=== PATIENT | male | born 1975 ===

== ENCOUNTER 2017-04-06 18:59 | Observation (INO) | payer OTHER ==
[2017-04-06 18:59] VITALS: BMI 31.3
[2017-04-06] MEDS ORDERED: Sodium Chloride 0.9% 1,000 ML IV STA ×2 (19:25→20:22)
--- NOTE | 2017-04-06 19:34 | ED PDOC ---
HPI: Chest Pain Time Seen by Provider: 04/06/17 19:16 Chief Complaint (Nursing): Chest Pain Chief Complaint (Provider): chest pain History Per: Patient History/Exam Limitations: no limitations Onset/Duration Of Symptoms: Days (x 2) Current Symptoms Are (Timing): Still Present Additional Complaint(s): Som Rojo is a 42 year old male, with a previous medical history of alcohol abuse, cirrhosis, arrhythmia and A-fib, who presents to the ED with complaints of chest pain associated with chest palpitations, vomiting, coughing and shortness of breath ongoing for 2 days. Patient reports approximately 8 episodes of non-bloody non-bilious vomiting. Patient reports sleeping during symptom onset. PMD: Clinic in [place] Past Medical History Reviewed: Historical Data, Nursing Documentation, Vital Signs Vital Signs: Last Vital Signs Temp 99.8 F H 04/06/17 19:24 Pulse 153 H 04/06/17 19:24 Resp 20 04/06/17 19:24 BP 138/81 04/06/17 19:24 Pulse Ox 97 04/06/17 19:56 - Medical History PMH: Atrial Fibrillation Denies: Chronic Kidney Disease Other PMH: cirrhosis and arrhythmia - Surgical History Surgical History: Appendectomy - Family History Family History: States: Unknown Family Hx - Home Medications Home Medications: Ambulatory Orders Medication Instructions Recorded No Known Home Med 03/26/16 - Allergies Allergies/Adverse Reactions: Allergies Allergy/AdvReac Type Severity Reaction Status Date / Time No Known Allergies Allergy Verified 04/06/17 19:08 Review of Systems ROS Statement: Except As Marked, All Systems Reviewed And Found Negative Constitutional: Negative for: Fever Cardiovascular: Positive for: Chest Pain, Palpitations Gastrointestinal: Positive for: Vomiting. Negative for: Abdominal Pain Physical Exam - Reviewed Nursing Documentation Reviewed: Yes Vital Signs Reviewed: Yes - Physical Exam Appears: Positive for: Well, Non-toxic, No Acute Distress Head Exam: Positive for: ATRAUMATIC, NORMAL INSPECTION, NORMOCEPHALIC Skin: Positive for: Normal Color, Warm, DRY Eye Exam: Positive for: Scleral icterus ENT: Positive for: Normal ENT Inspection Neck: Positive for: Normal, Painless ROM Cardiovascular/Chest: Positive for: Tachycardia, Irregularly Irregular Respiratory: Positive for: Normal Breath Sounds Gastrointestinal/Abdominal: Positive for: Bowel Sounds, Soft, Other ( protuberant ). Negative for: Tenderness Back: Positive for: Normal Inspection Extremity: Positive for: Normal ROM. Negative for: Tenderness, Pedal Edema, Calf Tenderness Neurologic/Psych: Positive for: Alert, Oriented - Laboratory Results Result Diagrams: 04/06/17 06:22 04/06/17 06:22 - ECG O2 Sat by Pulse Oximetry: 97 (RA) Pulse Ox Interpretation: Normal Medical Decision Making Medical Decision Making: Initial Impression: A-fib, dehydration Initial plan: * labs * urine drug screen * Troponin I * Partial thromboplastin time * prothrombin time * CXR * cardizem 20 mg IV * IV NS 1,000 ML at 500 ml/hr * alarm security or surveillance monitor cont * urinalysis * reevaluation 815PM: Pt.'s HR improved, HR now between 100-120, bP stable. Still c/o of slight headache and throat pain. Spoke with FP resident re: patient, will admit for rapid afib w/ RVR. Scribe Attestation: Documented by Laine Richards, acting as a scribe for Gustavo Chaudhary MD. Provider Scribe Attestation: All medical record entries made by the Scribe were at my direction and personally dictated by me. I have reviewed the chart and agree that the record accurately reflects my personal performance of the history, physical exam, medical decision making, and the department course for this patient. I have also personally directed, reviewed, and agree with the discharge instructions and disposition. Disposition - Clinical Impression Clinical Impression: Atrial fibrillation with RVR - Patient ED Disposition Is Patient to be Admitted: No - Disposition Disposition Time: 20:15 Condition: STABLE
[2017-04-06 19:56] LABS: BLOOD UREA NITROGEN 5 mg/dl (9-20); CALCIUM 8.6 mg/dL (8.4-10.2); CARBON DIOXIDE 24 mmol/L (22-30); CHLORIDE 107 mmol/L (98-107); EOS # 0.4 K/uL (0.0-0.7); EOS % 14.1 % (0.0-4.0); GFR AFRICAN-AMERICAN > 60; GLUCOSE,RANDOM 105 mg/dL (75-110); HEMATOCRIT 44.7 % (35.0-51.0); LYMPH # 0.3 K/uL (1.0-4.3); LYMPH % 10.9 % (20.0-40.0); MEAN CELL VOLUME 98.9 fl (80.0-94.0); MEAN CORPUSCULAR HGB CONC 34.4 g/dL (33.0-37.0); MEAN PLATELET VOLUME 9.5 fl (7.2-11.7); MONO # 0.3 K/uL (0.0-0.8); MONO % 12.5 % (0.0-10.0); NEUT # 1.7 K/uL (1.8-7.0); NEUT % 62.5 % (50.0-75.0); NRBC % 1.2 % (0.0-0.0); POTASSIUM 3.6 MMOL/L (3.6-5.0); RED CELL DISTRIBUTION WIDTH 13.7 % (11.5-14.5); SODIUM 141 mmol/l (132-148)
[2017-04-06 19:58] LABS: WHITE BLOOD COUNT 2.8 K/uL (4.8-10.8)
[2017-04-06 20:21] LABS: PARTIAL THROMBOPLASTIN TIME 37.5 Seconds (25.6-37.1)
[2017-04-06] MEDS ORDERED: diltiaZEM 100 mg Vial ( ADD-VANTAGE ) IV ONE (21:04)
[2017-04-06 21:54] LABS: ALB/GLOB RATIO 0.9 (1.0-2.1); BILIRUBIN,TOTAL 5.7 mg/dl (0.2-1.3)
--- NOTE | 2017-04-06 22:14 | CP.PCM.HP ---
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 Patient reports first noticing his symptoms when he woke up on the day of presentation after drinking "two big bottles" of premixed zeb the night before. Prior to this, patient states he had not drank alcohol for over 4 years. Since waking up, patient has been experiencing uncomfortable palpitations , anxiety and retrosternal chest pain. Pain is retrosternal, described as "pressure," ranging from 3-6/10 intensity and non radiating. He reports associated nausea with 6-8 episodes of nonbloody emesis prior to assessment. Patient denies recent illness, fevers, chills, SOB, lower extremity edema, abdominal pain, diarrhea, dysuria or auditory/visual/tactile hallucinations. In the ED, patient was noted to have Afib with RVR with a HR in the 150s. He denies a prior history of Afib or other cardiac pathology. PMD: [facility] Present on Admission - Present on Admission Any Indicators Present on Admission: No History of DVT/PE: No History of Uncontrolled Diabetes: No Urinary Catheter: No Decubitus Ulcer Present: No Review of Systems - Constitutional Constitutional: absent: Chills, Fever - Cardiovascular Cardiovascular: Chest Pain, Irregular Heart Rhythm, Palpitations, Rapid Heart Rate. absent: Edema, Pain Radiating to Arm/Neck/Jaw, Leg Edema - Respiratory Respiratory: absent: Cough, Wheezing - Gastrointestinal Gastrointestinal: Nausea, Vomiting. absent: Abdominal Pain, Diarrhea, Hematemesis, Hematochezia - Genitourinary Genitourinary: absent: Dysuria - Neurological Neurological: absent: Dizziness, Focal Weakness, Headaches - Psychiatric Psychiatric: Anxiety. absent: Auditory Hallucinations, Hallucinations, Homicidal Ideation, Visual Hallucinations, Tactile Hallucinations Past Patient History - Past Medical History & Family History Past Medical History?: Yes - Past Social History Smoking Status: Never Smoked Alcohol: Other (Former history of ETOH abuse. Quit 4 years ago but relapsed 1 day prior to admission.) Drugs: Denies Home Situation {Lives}: With Family - CARDIAC Hx Atrial Fibrillation: Yes - PULMONARY Hx Respiratory Disorders: No - NEUROLOGICAL Hx Neurological Disorder: No - HEENT Hx HEENT Problems: No - RENAL Hx Chronic Kidney Disease: No - ENDOCRINE/METABOLIC Hx Endocrine Disorders: No - HEMATOLOGICAL/ONCOLOGICAL Hx Blood Disorders: No - INTEGUMENTARY Hx Dermatological Problems: No - MUSCULOSKELETAL/RHEUMATOLOGICAL Hx Musculoskeletal Disorders: No - GASTROINTESTINAL Hx Gastrointestinal Disorders: Yes (Cirrhosis) - GENITOURINARY/GYNECOLOGICAL Hx Genitourinary Disorders: No - PSYCHIATRIC Hx Psychophysiologic Disorder: No Hx Substance Use: Yes (ETOH abuse) - SURGICAL HISTORY Hx Appendectomy: Yes - ANESTHESIA Hx Anesthesia: Yes Hx Anesthesia Reactions: No Hx Malignant Hyperthermia: No Meds Allergies/Adverse Reactions: Allergies Allergy/AdvReac Type Severity Reaction Status Date / Time No Known Allergies Allergy Verified 04/06/17 19:08 Physical Exam - Constitutional Appears: Agitated, Other (Uncomfortable) - Head Exam Head Exam: ATRAUMATIC, NORMAL INSPECTION, NORMOCEPHALIC - Eye Exam Eye Exam: EOMI, PERRL, Scleral icterus - ENT Exam ENT Exam: Mucous Membranes Moist - Respiratory Exam Respiratory Exam: Clear to Auscultation Bilateral, NORMAL BREATHING PATTERN. absent: Rales, Rhonchi, Wheezes - Cardiovascular Exam Cardiovascular Exam: Tachycardia, Irregular Rhythm, +S1, +S2 - GI/Abdominal Exam GI & Abdominal Exam: Normal Bowel Sounds, Soft. absent: Distended, Guarding, Rebound, Tenderness - Extremities Exam Extremities exam: Negative for: calf tenderness, pedal edema - Neurological Exam Neurological exam: Alert, Oriented x3 Additional comments: Moderately anxious, restless. Moderate tremor on outstretched hands. - Psychiatric Exam Psychiatric exam: Anxious - Skin Skin Exam: Diaphoretic, Warm Results - Vital Signs Recent Vital Signs: Last Vital Signs Temp 99.8 F H 04/06/17 19:24 Pulse 141 H 04/06/17 21:40 Resp 12 04/06/17 21:40 BP 141/81 04/06/17 21:40 Pulse Ox 100 04/06/17 21:40 - Labs Result Diagrams: 04/06/17 06:22 04/06/17 06:22 Labs: Laboratory Results - last 24 hr 04/06/17 21:32 Total Bilirubin 5.7 H Direct Bilirubin 1.5 H AST 112 H ALT 47 Alkaline Phosphatase 134 H Total Protein 8.0 Albumin 3.8 Globulin 4.2 H Albumin/Globulin Ratio 0.9 L Alcohol, Quantitative 16 H Assessment & Plan - Assessment and Plan (Free Text) Assessment: 42 y/o M with PMH of 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 In the ED, patient was noted to have Afib with RVR with a HR in the 150s and signs of acute alcohol withdrawal. Patient was admitted to telemetry for further treatment and monitoring. Plan: Afib with RVR -EKG detected afib with RVR with initial heart rate in the 150s range -Appears to be new-onset with patient denying any previous cardiac history -Improved with 20mg IV cardizem bolus -Patient started on cardizem drip at 5mg/hr -Admit to telemetry for close cardiac monitoring -Troponin negative -CHADSVASC score 0 -Cardiology consult requested -Echo ordered -Repeat EKG in AM Acute ETOH Withdrawal -Long standing ETOH abuse history, however patient states he quit for the last 4 years -Had a relapse yesterday, drinking two "large bottles" of premixed zeb -Initial CIWA score in ED: 20 -Received Ativan 1mg and Librium 50mg in ED -Will follow closely with serial CIWA checks -Librium 50mg Q4h PRN to maintain score less than 8 Liver Cirrhosis Secondary to ETOH Use -Patient has been following with GI/Bread Icer at [facility], last seen 1 month ago -Was initially referred for possible liver transplant but was told he did not need transplantation -Upper endoscopy performed on 12/2015 did not detect any varices -Has next GI appointment DVT Prophylaxis -SCDs for now
[2017-04-06 22:24] LABS: THYROID STIMULATING HORMONE 0.96 mIU/ML (0.46-4.68)
[2017-04-06 22:46] VITALS: O2SAT 95
[2017-04-06] MEDS ORDERED: Potassium Ch 20mEq in D5-1/2NS 1,000 ML IV SCH (23:45)
[2017-04-07 04:19] LABS: RBC URINE 3 /hpf (0-3); URINE BILIRUBIN MODERATE (NEGATIVE); URINE BLOOD NEGATIVE (NEGATIVE); URINE COLOR AMBER (YELLOW); URINE GLUCOSE (UA) NEG (Normal); URINE KETONE TRACE mg/dL (NEGATIVE); URINE LEUKOCYTE ESTERASE NEG Leu/uL (Negative); URINE PROTEIN 100 mg/dL (NEGATIVE); WBC URINE 4 /hpf (0-5)
[2017-04-07 05:11] VITALS: RESP 18
[2017-04-07 07:35] LABS: HEMATOCRIT 41.6 % (35.0-51.0); MEAN CELL VOLUME 100.5 fl (80.0-94.0); MEAN CORPUSCULAR HEMOGLOBIN 34.2 pg (27.0-31.0); MEAN CORPUSCULAR HGB CONC 34.1 g/dL (33.0-37.0); RED CELL DISTRIBUTION WIDTH 13.5 % (11.5-14.5); WHITE BLOOD COUNT 2.6 K/uL (4.8-10.8)
[2017-04-07 07:42] LABS: ALB/GLOB RATIO 0.8 (1.0-2.1); ALKALINE PHOSPHATASE 102 U/L (38-126); ALT/SGPT 44 U/L (21-72); AST/SGOT 95 U/L (17-59); BILIRUBIN,TOTAL 6.2 mg/dl (0.2-1.3); BLOOD UREA NITROGEN 8 mg/dl (9-20); CALCIUM 8.2 mg/dL (8.4-10.2); CARBON DIOXIDE 27 mmol/L (22-30); CHLORIDE 105 mmol/L (98-107); CHOLESTEROL 112 mg/dL (0-199); GFR AFRICAN-AMERICAN > 60; GLUCOSE,RANDOM 105 mg/dL (75-110); POTASSIUM 3.6 MMOL/L (3.6-5.0); SODIUM 140 mmol/l (132-148); TOTAL PROTEIN 7.2 G/DL (6.3-8.2)
[2017-04-07 08:28] VITALS: BP 117/74; PULSE 101; TEMP 99.1
--- NOTE | 2017-04-07 10:24 | RAD ---
PROCEDURE: CHEST RADIOGRAPH, 1 VIEW HISTORY: afib w/ RVR COMPARISON: Comparison is made to 01/21/2016 FINDINGS: LUNGS: No significant interval change in the lungs. PLEURA: No pneumothorax or pleural fluid seen. CARDIOVASCULAR: Normal. OSSEOUS STRUCTURES: No significant abnormalities. VISUALIZED UPPER ABDOMEN: Normal. OTHER FINDINGS: None. IMPRESSION: No active disease.
--- NOTE | 2017-04-07 11:04 | CP.PCM.PN ---
Subjective - Date & Time of Evaluation Date of Evaluation: 04/07/17 Time of Evaluation: 08:00 - Subjective Subjective: Patient seen and examined at bedside, in no acute distress. Denies chest pain, SOB, palpitations, tremors, weakness or dizziness. Patient reports nausea and vomiting have resolved, he is tolerating PO diet, ambulating without difficulty. Has no concerns or complaints at this time. Objective - Vital Signs/Intake and Output Vital Signs (last 24 hours): Temp Pulse Resp BP Pulse Ox 99.1 F 101 H 18 117/74 95 04/07/17 08:00 04/07/17 08:00 04/07/17 08:00 04/07/17 08:00 04/07/17 08:00 - Medications Medications: Current Medications Acetaminophen (Tylenol 325mg Tab) 650 mg PO Q6 PRN PRN Reason: Headache Chlordiazepoxide (Librium) 50 mg PO Q4H PRN PRN Reason: Symptoms of alcohol withdrawl Potassium Chloride/Dextrose/Sod Cl (Potassium Chl 20 Meq In D5-1/2ns) 1,000 mls @ 83 mls/hr IV .Q12H3M JONATHAN Stop: 04/07/17 23:58 Last Admin: 04/07/17 01:08 Dose: 83 mls/hr Ondansetron HCl (Zofran Inj) 4 mg IVP Q12 PRN PRN Reason: Nausea/Vomiting - Labs Labs: 04/07/17 06:30 04/07/17 06:30 PT 15.4 Seconds (9.8-13.1) H 04/06/17 19:40 INR 1.4 (0.9-1.2) H 04/06/17 19:40 APTT 37.5 Seconds (25.6-37.1) H 04/06/17 19:40 - Constitutional Appears: Well, Non-toxic, No Acute Distress - Head Exam Head Exam: ATRAUMATIC, NORMOCEPHALIC - Eye Exam Eye Exam: EOMI, PERRL - ENT Exam ENT Exam: Mucous Membranes Moist - Neck Exam Neck Exam: Full ROM. absent: Lymphadenopathy - Respiratory Exam Respiratory Exam: Clear to Ausculation Bilateral, NORMAL BREATHING PATTERN - Cardiovascular Exam Cardiovascular Exam: REGULAR RHYTHM, +S1, +S2 - GI/Abdominal Exam GI & Abdominal Exam: Soft (obese). absent: Distended, Tenderness - Extremities Exam Extremities Exam: Full ROM. 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 Patient was found to have Afib with RVR with a HR in the 150s and signs of acute alcohol withdrawal, utox was positive for Cocaine and Etoh, in ED pt was treated with Cardizem 25mg IVP once, Librium 50 mg PO once and Ativan 1mg IVP once. Patient was admitted to telemetry for monitoring and was treated with Cardizem drip 5mg/hr. Patient is stable today, symptoms have resolved, he is now in sinus rhythm and as per conversation with cardiology Cardizem drip was discontinued, is tolerating PO diet. Plan: 1. Afib with RVR -resolved, repeat EKG this AM NSR -initial EKG detected afib with RVR with initial heart rate in the 150s range -Appears to be new-onset with patient denying any previous cardiac history -discontinue Cardizem drip -Troponin negative x 2 -CHADSVASC score 0 -Cardiology consult appreciated: d/c Cardizem drip, will follow recommendations -f/u Echo -f/u official report for repeat EKG -patient is not candidate for anticoagulation due to Etoh abuse, Cocaine abuse 2. Acute ETOH Withdrawal -resolved -Long standing ETOH abuse history, had relapse (04/04 and 04/05) -Will follow closely with serial CIWA checks, score < 8 this AM -Librium 50mg Q4h PRN to maintain score less than 8 3. 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 DVT Prophylaxis -SCDs for now
--- NOTE | 2017-04-07 11:40 | CP.PCM.CON ---
History of Present Illness - History of Present Illness History of Present Illness: Full Note Dictated Acute ETOH toxicity with trnsient A Fib ("[facility]") Ethanol induced Cirrhosis Pt back in sinus rhythm/Echo shows normal LV wall motion LVEF preserved Pt understands strict ETOH abstinence. May go home today. Past Patient History - Past Medical History & Family History Past Medical History?: Yes - Past Social History Smoking Status: Never Smoked - CARDIAC Hx Cardiac Disorders: Yes Hx Atrial Fibrillation: Yes - PULMONARY Hx Respiratory Disorders: No - NEUROLOGICAL Hx Neurological Disorder: No - HEENT Hx HEENT Problems: No - RENAL Hx Chronic Kidney Disease: No - ENDOCRINE/METABOLIC Hx Endocrine Disorders: No - HEMATOLOGICAL/ONCOLOGICAL Hx Blood Disorders: No Hx AIDS: No Hx Human Immunodeficiency Virus (HIV): No - INTEGUMENTARY Hx Dermatological Problems: No - MUSCULOSKELETAL/RHEUMATOLOGICAL Hx Musculoskeletal Disorders: No Hx Falls: No - GASTROINTESTINAL Hx Gastrointestinal Disorders: Yes (Cirrhosis) - GENITOURINARY/GYNECOLOGICAL Hx Genitourinary Disorders: No - PSYCHIATRIC Hx Psychophysiologic Disorder: No Hx Substance Use: Yes (ETOH abuse) - SURGICAL HISTORY Hx Appendectomy: Yes - ANESTHESIA Hx Anesthesia: Yes Hx Anesthesia Reactions: No Hx Malignant Hyperthermia: No Meds Allergies/Adverse Reactions: Allergies Allergy/AdvReac Type Severity Reaction Status Date / Time No Known Allergies Allergy Verified 04/06/17 19:08 - Medications Medications: Current Medications Acetaminophen (Tylenol 325mg Tab) 650 mg PO Q6 PRN PRN Reason: Headache Chlordiazepoxide (Librium) 50 mg PO Q4H PRN PRN Reason: Symptoms of alcohol withdrawl Ondansetron HCl (Zofran Inj) 4 mg IVP Q12 PRN PRN Reason: Nausea/Vomiting Results - Vital Signs Recent Vital Signs: Last Vital Signs Temp 99.1 F 04/07/17 08:00 Pulse 101 H 04/07/17 08:00 Resp 18 04/07/17 08:00 BP 117/74 04/07/17 08:00 Pulse Ox 95 04/07/17 08:00 - Labs Result Diagrams: 04/07/17 06:30 04/07/17 06:30 Labs: Laboratory Results - last 24 hr 04/06/17 04/07/17 04/07/17 21:32 03:45 03:45 WBC RBC Hgb Hct MCV MCH MCHC RDW Plt Count Sodium Potassium Chloride Carbon Dioxide Anion Gap BUN Creatinine Est GFR ( Amer) Est GFR (Non-Af Amer) Random Glucose Calcium Total Bilirubin 5.7 H Direct Bilirubin 1.5 H AST 112 H ALT 47 Alkaline Phosphatase 134 H Ammonia Total Protein 8.0 Albumin 3.8 Globulin 4.2 H Albumin/Globulin Ratio 0.9 L Triglycerides Cholesterol LDL Cholesterol Direct HDL Cholesterol TSH 3rd Generation 0.96 Urine Color Lala Urine Clarity Slighty-cloudy Urine pH 6.0 Ur Specific [place] 1.028 Urine Protein 100 Urine Glucose (UA) Neg Urine Ketones Trace Urine Blood Negative Urine Nitrate Negative Urine Bilirubin Moderate Urine Urobilinogen 4.0 Ur Leukocyte Esterase Neg Urine RBC (Auto) 3 Urine Microscopic WBC 4 Urine Opiates Screen Negative Urine Methadone Screen Negative Ur Barbiturates Screen Negative Ur Phencyclidine Scrn Negative Ur Amphetamines Screen Negative U Benzodiazepines Scrn Negative U Oth Cocaine Metabols Positive H U Cannabinoids Screen Negative Alcohol, Quantitative 16 H 04/07/17 04/07/17 04/07/17 06:30 06:30 06:30 WBC 2.6 L RBC 4.14 L Hgb 14.2 Hct 41.6 MCV 100.5 H MCH 34.2 H MCHC 34.1 RDW 13.5 Plt Count 43 L Sodium 140 Potassium 3.6 Chloride 105 Carbon Dioxide 27 Anion Gap 11 BUN 8 L Creatinine 0.6 L Est GFR ( Amer) > 60 Est GFR (Non-Af Amer) > 60 Random Glucose 105 Calcium 8.2 L Total Bilirubin 6.2 H Direct Bilirubin AST 95 H ALT 44 Alkaline Phosphatase 102 Ammonia 81 H Total Protein 7.2 Albumin 3.3 L Globulin 3.9 Albumin/Globulin Ratio 0.8 L Triglycerides 95 D Cholesterol 112 LDL Cholesterol Direct 79 HDL Cholesterol 17 L TSH 3rd Generation Urine Color Urine Clarity Urine pH Ur Specific [place] Urine Protein Urine Glucose (UA) Urine Ketones Urine Blood Urine Nitrate Urine Bilirubin Urine Urobilinogen Ur Leukocyte Esterase Urine RBC (Auto) Urine Microscopic WBC Urine Opiates Screen Urine Methadone Screen Ur Barbiturates Screen Ur Phencyclidine Scrn Ur Amphetamines Screen U Benzodiazepines Scrn U Oth Cocaine Metabols U Cannabinoids Screen Alcohol, Quantitative
--- NOTE | 2017-04-07 13:48 | CARD ---
APPROVED REPORT EKG Measurement Heart [id number] <Conclusion> Normal sinus rhythm Normal ECG
--- NOTE | 2017-04-07 14:00 | CARD ---
APPROVED REPORT EKG Measurement Heart [id number] <Conclusion> Atrial fibrillation with rapid ventricular response with premature ventricular or aberrantly conducted complexes Low voltage QRS Abnormal ECG
--- NOTE | 2017-04-07 15:02 | CP.PCM.DIS ---
Provider - Provider Date of Admission: 04/06/17 20:24 Attending physician: Hany Jimenes MD Primary care physician: [facility] Consults: Dr. Dickinson- Cardiology Time Spent in preparation of Discharge (in minutes): 30 Diagnosis - Discharge Diagnosis (1) Atrial fibrillation with RVR Status: Resolved Priority: Medium (2) ETOH abuse Status: Acute Priority: Medium Hospital Course - Lab Results Lab Results: Most Recent Lab Values WBC 2.6 K/uL (4.8-10.8) L 04/07/17 06:30 RBC 4.14 Mil/uL (4.40-5.90) L 04/07/17 06:30 Hgb 14.2 g/dL (12.0-18.0) 04/07/17 06:30 Hct 41.6 % (35.0-51.0) 04/07/17 06:30 MCV 100.5 fl (80.0-94.0) H 04/07/17 06:30 MCH 34.2 pg (27.0-31.0) H 04/07/17 06:30 MCHC 34.1 g/dL (33.0-37.0) 04/07/17 06:30 RDW 13.5 % (11.5-14.5) 04/07/17 06:30 Plt Count 43 K/uL (130-400) L 04/07/17 06:30 MPV 9.5 fl (7.2-11.7) 04/06/17 06:22 Neut % (Auto) 62.5 % (50.0-75.0) 04/06/17 06:22 Lymph % (Auto) 10.9 % (20.0-40.0) L 04/06/17 06:22 Harney % (Auto) 12.5 % (0.0-10.0) H 04/06/17 06:22 Eos % (Auto) 14.1 % (0.0-4.0) H 04/06/17 06:22 Baso % (Auto) 0.0 % (0.0-2.0) 04/06/17 06:22 Neut # 1.7 K/uL (1.8-7.0) L 04/06/17 06:22 Lymph # 0.3 K/uL (1.0-4.3) L 04/06/17 06:22 Harney # 0.3 K/uL (0.0-0.8) 04/06/17 06:22 Eos # 0.4 K/uL (0.0-0.7) 04/06/17 06:22 Baso # 0.0 K/uL (0.0-0.2) 04/06/17 06:22 PT 15.4 Seconds (9.8-13.1) H 04/06/17 19:40 INR 1.4 (0.9-1.2) H 04/06/17 19:40 APTT 37.5 Seconds (25.6-37.1) H 04/06/17 19:40 Sodium 140 mmol/l (132-148) 04/07/17 06:30 Potassium 3.6 MMOL/L (3.6-5.0) 04/07/17 06:30 Chloride 105 mmol/L (98-107) 04/07/17 06:30 Carbon Dioxide 27 mmol/L (22-30) 04/07/17 06:30 Anion Gap 11 (10-20) 04/07/17 06:30 BUN 8 mg/dl (9-20) L 04/07/17 06:30 Creatinine 0.6 mg/dL (0.8-1.5) L 04/07/17 06:30 Est GFR ( Amer) > 60 04/07/17 06:30 Est GFR (Non-Af Amer) > 60 04/07/17 06:30 Random Glucose 105 mg/dL (75-110) 04/07/17 06:30 Calcium 8.2 mg/dL (8.4-10.2) L 04/07/17 06:30 Total Bilirubin 6.2 mg/dl (0.2-1.3) H 04/07/17 06:30 Direct Bilirubin 1.5 mg/ml (0.0-0.4) H 04/06/17 21:32 AST 95 U/L (17-59) H 04/07/17 06:30 ALT 44 U/L (21-72) 04/07/17 06:30 Alkaline Phosphatase 102 U/L (38-126) 04/07/17 06:30 Ammonia 45 umo/L (16-60) D 04/07/17 12:45 Troponin I 0.0220 ng/mL (0.00-0.120) 04/06/17 06:22 Total Protein 7.2 G/DL (6.3-8.2) 04/07/17 06:30 Albumin 3.3 g/dL (3.5-5.0) L 04/07/17 06:30 Globulin 3.9 gm/dL (2.2-3.9) 04/07/17 06:30 Albumin/Globulin Ratio 0.8 (1.0-2.1) L 04/07/17 06:30 Triglycerides 95 mg/DL (0-149) D 04/07/17 06:30 Cholesterol 112 mg/dL (0-199) 04/07/17 06:30 LDL Cholesterol Direct 79 mg/dL (0-129) 04/07/17 06:30 HDL Cholesterol 17 MG/DL (30-70) L 04/07/17 06:30 Alpha Fetoprotein 5.4 IU/mL (0.0-7.22) 04/07/17 12:45 TSH 3rd Generation 0.96 mIU/ML (0.46-4.68) 04/06/17 21:32 Urine Color Lala (YELLOW) 04/07/17 03:45 Urine Clarity Slighty-cloudy (Clear) 04/07/17 03:45 Urine pH 6.0 (5.0-8.0) 04/07/17 03:45 Ur Specific [place] 1.028 (1.003-1.030) 04/07/17 03:45 Urine Protein 100 mg/dL (NEGATIVE) 04/07/17 03:45 Urine Glucose (UA) Neg mg/dL (Normal) 04/07/17 03:45 Urine Ketones Trace mg/dL (NEGATIVE) 04/07/17 03:45 Urine Blood Negative (NEGATIVE) 04/07/17 03:45 Urine Nitrate Negative (NEGATIVE) 04/07/17 03:45 Urine Bilirubin Moderate (NEGATIVE) 04/07/17 03:45 Urine Urobilinogen 4.0 mg/dL (0.2-1.0) 04/07/17 03:45 Ur Leukocyte Esterase Neg Soha/uL (Negative) 04/07/17 03:45 Urine RBC (Auto) 3 /hpf (0-3) 04/07/17 03:45 Urine Microscopic WBC 4 /hpf (0-5) 04/07/17 03:45 Urine Opiates Screen Negative (NEGATIVE) 04/07/17 03:45 Urine Methadone Screen Negative (NEGATIVE) 04/07/17 03:45 Ur Barbiturates Screen Negative (NEGATIVE) 04/07/17 03:45 Ur Phencyclidine Scrn Negative (NEGATIVE) 04/07/17 03:45 Ur Amphetamines Screen Negative (NEGATIVE) 04/07/17 03:45 U Benzodiazepines Scrn Negative (NEGATIVE) 04/07/17 03:45 U Oth Cocaine Metabols Positive (NEGATIVE) H 04/07/17 03:45 U Cannabinoids Screen Negative (NEGATIVE) 04/07/17 03:45 Alcohol, Quantitative 16 mg/dl (0-10) H 04/06/17 21:32 - Hospital Course Hospital Course: 42 yr old M admitted for new onset A-fib with RVR, with 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 Patient was found to have Afib with RVR with a HR in the 150s and signs of acute alcohol withdrawal, utox was positive for Cocaine and Etoh, in ED pt was treated with Cardizem 25mg IVP once, Librium 50 mg PO once and Ativan 1mg IVP once. Patient was treated with Cardizem drip 5mg/hr. Patient was stable today, symptoms resolved, today converted to sinus rhythm and as per conversation with cardiology Cardizem drip was discontinued, Echo showed normal LV wall motion, LVEF preserved clear to go home from cardiology point of view. Patient is not a candidate for anticoagulation d/t EToh abuse and cocaine abuse. Follow up appts: [facility] with Dr. Perez 04/16/17 3:20pm; [facility] ; Dr. Guerrero 05/05/17 2pm - Date & Time of H&P Date of H&P: 04/06/17 Time of H&P: 22:00 Discharge Exam - Head Exam Head Exam: ATRAUMATIC, NORMOCEPHALIC - Eye Exam Eye Exam: EOMI, PERRL - ENT Exam ENT Exam: Mucous Membranes Moist - Neck Exam Neck exam: Full Rom - Respiratory Exam Respiratory Exam: Clear to PA & Lateral, NORMAL BREATHING PATTERN - Cardiovascular Exam Cardiovascular Exam: REGULAR RHYTHM, +S1, +S2 - GI/Abdominal Exam GI & Abdominal Exam: Normal Bowel Sounds, Soft (obese). absent: Distended - Extremities Exam Extremities exam: full ROM (no pedal edema, no joint swelling) - Back Exam Back exam: absent: CVA tenderness (L), CVA tenderness (R) - Neurological Exam Neurological exam: Alert, CN II-XII Intact, Oriented x3 - Psychiatric Exam Psychiatric exam: Normal Affect, Normal Mood - Skin Skin Exam: Dry, Intact, Normal Color, Warm Discharge Plan - Follow Up Plan Condition: STABLE Disposition: HOME/ ROUTINE Instructions: Atrial Fibrillation (DC), Cirrhosis (DC), Cocaine Abuse (DC), Alcohol Intoxication (DC) Additional Instructions: -Follow up in [facility] with Dr. Perez on 04/16/17 at 3:20pm -Follow up at [facility] as scheduled 04/18/17 -Follow up with GI- Dr. Guerrero 05/05/17 at 2pm Referrals: Cesar VELASQUEZ,MD Charlee [Medical Doctor] - Eugenia Perez MD [Resident] -
--- NOTE | 2017-04-07 16:43 | CON ---
DATE: 04/07/2017 He is hospitalized under the resident's care in room 417, bed 2. HISTORY OF PRESENT ILLNESS: This is a 42-year-old man with a history of alcohol-induced cirrhosis, c nargis into the Emergency Room with palpitations and was found to have atrial fibrillation. He admits t o having had a few alcohol drinks yesterday, which in fact he admits he is not supposed to have. The patient denies prior history of hypertension or diabetes or any cardiac issue, has been attending an outpatient clinic at the [facility] for chronic liver disease. Has never been hospitalize d for his heart and does not take any medications pertaining to his heart. At this juncture, having returned back to sinus rhythm, has no symptoms at all. PHYSICAL EXAMINATION: GENERAL: Shows a young man who is overweight, alert, awake, coherent, afebrile, able to lie virtuall y flat and breathe comfortably at 14 breaths per minute. VITAL SIGNS: Has a heart rate of 72 beats per minute, regular, and a blood pressure of 138/74 mmHg. HEENT: The patient did have faint icterus to his sclerae. NECK: His jugular venous pressure was not elevated. EXTREMITIES: There was no edema over his lower extremity. The pedal pulses were well felt. There w ere no carotid bruits. Extremities are warm, nailbeds are pink. There was no central or peripheral cyanosis. There was no clubbing. HEART: The apex was not palpable. The first and second heart sounds were normal. There was no murm ur, no gallop. LUNGS: No rales. ABDOMEN: Distended with evidence of free fluid in the abdomen. The liver was enlarged 3 fingers bel ow the right costal margin, firm and nontender. There were no abdominal bruits. His electrocardiogram now shows sinus rhythm with a normal EKG pattern. Earlier electrocardiogram at admission did show atrial fibrillation at 157 beats per minute with low voltage in limb leads, but ot herwise nonspecific ST changes. The echocardiogram was reviewed and it shows a preserved left ventri cular systolic function with a normal left ventricular ejection fraction. There is tricuspid regurgi tation, but the pulmonary artery systolic pressure is within normal limits. IMPRESSION AND PLAN: At this time is acute ethanol toxicity with transient atrial fibrillation, hist ory of ethanol-induced cirrhosis. The patient understands that strict abstinence from alcohol is nec essary. No intervention is needed at this juncture. The patient may be allowed to return home. Blayne Dickinson MD cc: 23 TT: 04/07/2017 16:42:37 Confirmation # [id number] Dictation # [id number] mari
--- NOTE | 2017-04-07 18:56 | CARD ---
APPROVED REPORT EXAM: Two-dimensional and M-mode echocardiogram with Doppler and color Doppler. Other Information Quality : GoodRhythm : NSR INDICATION Atrial Fibrillation 2D DIMENSIONS IVSd1.57 (0.7-1.1cm)LVDd5.20 (3.9-5.9cm) LVOT Diameter2.52 (1.8-2.4cm)PWd0.95 (0.7-1.1cm) IVSs2.37 (0.8-1.2cm)LVDs3.11 (2.5-4.0cm) FS (%) 40.2 %PWs1.69 (0.8-1.2cm) M-Mode DIMENSIONS Left Atrium (MM)4.65 (2.5-4.0cm)IVSd1.47 (0.7-1.1cm) Aortic Root3.88 (2.2-3.7cm)LVDd5.21 (4.0-5.6cm) Aortic Cusp Exc.2.47 (1.5-2.0cm)PWd1.15 (0.7-1.1cm) IVSs2.12 cmFS (%) 38 % LVDs3.21 (2.0-3.8cm)PWs1.59 cm Mitral Valve E/A ratio0.0 TDI E/Lateral E'0.0E/Medial E'0.0 Pulmonary Valve PV Peak Sbkmhnsm222.6cm/s Tricuspid Valve TR Peak [id number] [id number] Peak Gr.18mmHg [id number] LEFT VENTRICLE The left ventricle is normal in size. There is asymmetric septal hypertrophy(without HERNANDO). This is best seen on the 2D parasternal long axis view. The left ventricular function is normal. The left ventricular ejection fraction is - 70%.. There is normal LV segmental wall motion. The left ventricular diastolic function is normal. No left ventricle thrombus noted on this study. There is no ventricular septal defect visualized. There is no left ventricular aneurysm. There is no mass noted in the left ventricle. RIGHT VENTRICLE The right ventricle is normal size. There is normal right ventricular wall thickness. The right ventricular systolic function is normal. ATRIA The left atrium is mildly to moderately dilated on the 2D study. There is no thrombus suspected in the left atrium. The right atrium is mildly dilated. The interatrial septum is intact with no evidence for an atrial septal defect. AORTIC VALVE The aortic valve is normal in structure and function. No aortic regurgitation is present. There is no aortic valvular stenosis. MITRAL VALVE The mitral valve is normal in structure and function. There is no evidence of mitral valve prolapse. There is no mitral valve stenosis. Mitral regurgitation is mild. TRICUSPID VALVE The tricuspid valve is normal in structure and function. There is mild tricuspid regurgitation. Right ventricular systolic pressure is estimated at 27 mmHg. There is no tricuspid valve prolapse or vegetation. There is no tricuspid valve stenosis. PULMONIC VALVE The pulmonary valve is normal in structure and function. There is no pulmonic valvular regurgitation. GREAT VESSELS The aortic root is mildly enlarged. The IVC was not visualized. PERICARDIAL EFFUSION The pericardium appears normal. There is no pleural effusion. <Conclusion> The left ventricle is normal in size. There is asymmetric septal hypertrophy. The left ventricular function is normal. The left ventricular ejection fraction is - 70%. The left atrium is mildly to moderately dilated and the right atrium is mildly dilated. The aortic, mitral and tricuspid valves are normal. There is mild mitral regurgitation and mild tricuspid regurgitation.
== END 2017-04-07 14:30 | disposition home or self-care (01) ==
LOC: H.ER 18:59 → H.ERHOLD 20:24 → H.TEL 22:01
PROVIDERS: ADMIT Family Medicine; ATTEND Family Medicine
DX: I48.91 Unspecified atrial fibrillation (principal); K70.30 Alcoholic cirrhosis of liver without ascites; E86.0 Dehydration; Y90.0 Blood alcohol level of less than 20 mg/100 ml; F10.239 Alcohol dependence with withdrawal, unspecified; F14.10 Cocaine abuse, uncomplicated; T51.0X1A Toxic effect of ethanol, accidental (unintentional), initial encounter

== ENCOUNTER 2017-05-05 11:26 | Emergency (ER) | payer SELFPAY ==
[2017-05-05 11:53] VITALS: BMI 29.5
[2017-05-05] MEDS ORDERED: Sodium Chloride 0.9% 1,000 ML IV STA (11:53)
[2017-05-05 12:09] VITALS: BP 138/89; PULSE 98; RESP 16; TEMP 97; O2SAT 96
[2017-05-05 12:11] LABS: BASO % 0.6 % (0.0-2.0); EOS % 0.9 % (0.0-4.0); HEMOGLOBIN 15.7 g/dL (12.0-18.0); LYMPH # 0.6 K/uL (1.0-4.3); MEAN CELL VOLUME 99.2 fl (80.0-94.0); MEAN CORPUSCULAR HEMOGLOBIN 34.9 pg (27.0-31.0); MEAN CORPUSCULAR HGB CONC 35.2 g/dL (33.0-37.0); MEAN PLATELET VOLUME 9.4 fl (7.2-11.7); MONO # 0.3 K/uL (0.0-0.8); NEUT # 2.6 K/uL (1.8-7.0); NEUT % 73.5 % (50.0-75.0); NRBC % 0.2 % (0.0-0.0); RBC 4.49 Mil/uL (4.40-5.90); RED CELL DISTRIBUTION WIDTH 14.3 % (11.5-14.5); WHITE BLOOD COUNT 3.6 K/uL (4.8-10.8)
[2017-05-05 12:23] LABS: ALB/GLOB RATIO 0.8 (1.0-2.1); ALBUMIN 3.8 g/dL (3.5-5.0); ALT/SGPT 77 U/L (21-72); AST/SGOT 174 U/L (17-59); BLOOD UREA NITROGEN 3 mg/dl (9-20); CALCIUM 8.6 mg/dL (8.4-10.2); GFR AFRICAN-AMERICAN > 60; GFR NON-AFRICAN AMERICAN > 60; LIPASE 101 U/L (23-300)
--- NOTE | 2017-05-05 12:48 | RAD ---
HISTORY: Shortness of breath COMPARISON: 04/06/2017. FINDINGS: LUNGS: The lungs are clear. PLEURA: No significant pleural effusion identified, no pneumothorax apparent. CARDIOVASCULAR: Normal. OSSEOUS STRUCTURES: No significant abnormalities. VISUALIZED UPPER ABDOMEN: Normal. OTHER FINDINGS: None. IMPRESSION: No active pulmonary disease.
[2017-05-05 12:51] LABS: INR 1.5 (0.9-1.2); PARTIAL THROMBOPLASTIN TIME 38.6 Seconds (25.6-37.1); PROTHROMBIN TIME 16.8 Seconds (9.8-13.1)
--- NOTE | 2017-05-05 12:52 | ED PDOC ---
HPI: Abdomen Time Seen by Provider: 05/05/17 11:49 Chief Complaint (Nursing): Abdominal Pain Chief Complaint (Provider): Abdominal Pain History Per: Patient History/Exam Limitations: no limitations Onset/Duration Of Symptoms: Days (x 1 week) Current Symptoms Are (Timing): Still Present Location Of Pain/Discomfort: Epigastric Associated Symptoms: Nausea, Vomiting Additional Complaint(s): Som Rojo is a 42-year-old male with a past medical history of alcohol abuse and liver cirrhosis who presents to the emergency department with complaints of epigastric pain, nausea, vomiting, and dark stools, ongoing x 7 days. Patient states that his last alcoholic beverage was yesterday. Denies fever, blood in vomit, and hallucinations associated with alcohol withdrawal. PMD: None Past Medical History Reviewed: Historical Data, Nursing Documentation, Vital Signs Vital Signs: Last Vital Signs Temp 97 F L 05/05/17 11:45 Pulse 98 H 05/05/17 11:45 Resp 16 05/05/17 11:45 BP 138/89 05/05/17 11:45 Pulse Ox 96 05/05/17 13:27 - Medical History PMH: Atrial Fibrillation Denies: HIV, Chronic Kidney Disease Other PMH: Cirrhosis - Surgical History Surgical History: Appendectomy - Family History Family History: States: Unknown Family Hx - Social History Current smoker - smoking cessation education provided: No Alcohol: Other (Alcohol abuse) Drugs: Denies - Home Medications Home Medications: Ambulatory Orders Medication Instructions Recorded Ranitidine HCl [Zantac] 150 mg PO BID #20 tablet 05/05/17 - Allergies Allergies/Adverse Reactions: Allergies Allergy/AdvReac Type Severity Reaction Status Date / Time No Known Allergies Allergy Verified 04/06/17 19:08 Review of Systems ROS Statement: Except As Marked, All Systems Reviewed And Found Negative Constitutional: Positive for: Malaise. Negative for: Fever Gastrointestinal: Positive for: Nausea, Vomiting, Abdominal Pain (In the epigastric area), Melena. Negative for: Hematemesis Psych: Negative for: Withdrawal (from alcohol), Other (Auditory/Visual hallucinations) Physical Exam - Reviewed Nursing Documentation Reviewed: Yes Vital Signs Reviewed: Yes - Physical Exam Appears: Positive for: Non-toxic Head Exam: Positive for: ATRAUMATIC, NORMAL INSPECTION, NORMOCEPHALIC Skin: Positive for: Normal Color, Warm, DRY Eye Exam: Positive for: Scleral icterus. Negative for: Normal appearance Neck: Positive for: Normal, Painless ROM, Supple Cardiovascular/Chest: Positive for: Regular Rate, Rhythm. Negative for: Murmur Respiratory: Positive for: Normal Breath Sounds. Negative for: Accessory Muscle Use, Respiratory Distress Gastrointestinal/Abdominal: Positive for: Soft, Tenderness (Mild mid-epigastric tenderness). Negative for: Normal Exam Back: Positive for: Normal Inspection. Negative for: Vertebral Tenderness Extremity: Positive for: Normal ROM. Negative for: Pedal Edema, Deformity Neurologic/Psych: Positive for: Alert, Oriented - Laboratory Results Result Diagrams: 05/05/17 12:06 05/05/17 12:06 - ECG O2 Sat by Pulse Oximetry: 96 (RA) Pulse Ox Interpretation: Normal Medical Decision Making Medical Decision Making: Time: 11:53 Initial impression: Work up for GI bleed, rule out alcoholic hepatitis/alcohol withdrawal/anemia Initial plan: --ECG --Partial thromboplastin time --Prothrombin time --CBC w/ differential --Troponin I --Lipase --COMP Metabolic Panel --Alcohol Serum --CXR --Urinalysis --Pepcid 20 mg IV --Sodium Chloride 1,000 mL IV at 1,000 mL/hr --Zofran 4 mg IV Time: 12:35 --Chest X-Ray FINDINGS: LUNGS: The lungs are clear. PLEURA: No significant pleural effusion identified, no pneumothorax apparent. CARDIOVASCULAR: Normal. OSSEOUS STRUCTURES: No significant abnormalities. VISUALIZED UPPER ABDOMEN: Normal. OTHER FINDINGS: None. IMPRESSION: No active pulmonary disease. Time: 13:07 --Potassium Chloride 20 meq PO -- Morphine 2 mg IV Scribe Attestation: Documented by Gloria Valle, acting as a scribe for Yung Mackay MD. Provider Scribe Attestation: All medical record entries made by the Scribe were at my direction and personally dictated by me. I have reviewed the chart and agree that the record accurately reflects my personal performance of the history, physical exam, medical decision making, and the department course for this patient. I have also personally directed, reviewed, and agree with the discharge instructions and disposition. Disposition - Clinical Impression Clinical Impression: Abdominal pain - Patient ED Disposition Is Patient to be Admitted: No Counseled Patient/Family Regarding: Studies Performed, Diagnosis, Need For Followup - Disposition Referrals: Yung Low MD, PhD [Staff Provider] - Disposition: Routine/Home Disposition Time: 16:30 Condition: STABLE Prescriptions: Ranitidine HCl [Zantac] 150 mg PO BID #20 tablet Instructions: Cirrhosis (ED)
[2017-05-05] MEDS ORDERED: Potassium Chloride 20 mEq ER Tab PO ONE ×2 (13:07→13:09)
--- NOTE | 2017-05-06 08:26 | CARD ---
APPROVED REPORT EKG Measurement Heart [id number] [place] [id number] <Conclusion> Normal sinus rhythm Normal ECG
== END 2017-05-05 17:07 | disposition home or self-care (01) ==
LOC: H.ER 11:26
DX: R10.13 Epigastric pain (principal); K74.60 Unspecified cirrhosis of liver; F10.10 Alcohol abuse, uncomplicated

== ENCOUNTER 2017-11-27 11:23 | Emergency (ER) | payer OTHER, SELFPAY ==
[2017-11-27 11:23] VITALS: BMI 29.5
[2017-11-27 11:36] VITALS: BP 148/76; PULSE 104; RESP 20; TEMP 98; O2SAT 100
[2017-11-27] MEDS ORDERED: Sodium Chloride 0.9% 1,000 ML IV STA (12:16)
--- NOTE | 2017-11-27 12:22 | ED PDOC ---
HPI: Abdomen Time Seen by Provider: 11/27/17 12:02 Chief Complaint (Nursing): Abdominal Pain Chief Complaint (Provider): Abdominal pain History Per: Patient History/Exam Limitations: no limitations Onset/Duration Of Symptoms: Days (x1) Context: Other (bottles of margaritas) Location Of Pain/Discomfort: Epigastric Associated Symptoms: Nausea, Vomiting. denies: Fever, Diarrhea, Other (no bleeding) Additional Complaint(s): Som Rojo is a 42 year old male, with no significant past medical history, who presents to the emergency department complaining of epigastric abdominal pain associated with nausea and vomiting onset since last night. Patient reports that pain presented after he drank 2 bottles of margaritas. He denies any diarrhea, fever, or bleeding. No further medical complaints. PMD: None provided. Past Medical History Reviewed: Historical Data, Nursing Documentation, Vital Signs Vital Signs: Last Vital Signs Temp 98 F 11/27/17 11:30 Pulse 104 H 11/27/17 11:30 Resp 20 11/27/17 11:30 BP 148/76 11/27/17 11:30 Pulse Ox 100 11/27/17 15:07 - Medical History PMH: Atrial Fibrillation, HTN Denies: HIV, Chronic Kidney Disease - Surgical History Surgical History: Appendectomy - Family History Family History: States: Unknown Family Hx - Immunization History Hx Tetanus Toxoid Vaccination: No Hx Influenza Vaccination: No Hx Pneumococcal Vaccination: No - Home Medications Home Medications: Ambulatory Orders Medication Instructions Recorded Lactulose 07/09/17 Famotidine [Pepcid] 20 mg PO Q12 #20 tab 11/27/17 Ondansetron [Zofran] 4 mg PO Q8H #10 tab 11/27/17 - Allergies Allergies/Adverse Reactions: Allergies Allergy/AdvReac Type Severity Reaction Status Date / Time No Known Allergies Allergy Verified 07/09/17 15:57 Review of Systems ROS Statement: Except As Marked, All Systems Reviewed And Found Negative Constitutional: Negative for: Fever Gastrointestinal: Positive for: Nausea, Vomiting, Abdominal Pain (epigastric). Negative for: Diarrhea, Other (bleeding) Physical Exam - Reviewed Nursing Documentation Reviewed: Yes Vital Signs Reviewed: Yes - Physical Exam Appears: Positive for: Non-toxic, No Acute Distress Head Exam: Positive for: ATRAUMATIC, NORMAL INSPECTION, NORMOCEPHALIC Skin: Positive for: Normal Color, Warm, Dry Eye Exam: Positive for: Normal appearance, EOMI, PERRL Neck: Positive for: Painless ROM, Supple Cardiovascular/Chest: Positive for: Regular Rate, Rhythm. Negative for: Murmur Respiratory: Positive for: Normal Breath Sounds. Negative for: Respiratory Distress Gastrointestinal/Abdominal: Positive for: Tenderness (epigastric). Negative for : Guarding, Rebound Back: Positive for: Normal Inspection. Negative for: L CVA Tenderness, R CVA Tenderness, Vertebral Tenderness Extremity: Positive for: Normal ROM. Negative for: Deformity Neurologic/Psych: Positive for: Alert, Oriented - Laboratory Results Result Diagrams: 11/27/17 12:30 11/27/17 12:30 - ECG O2 Sat by Pulse Oximetry: 100 (RA) Pulse Ox Interpretation: Normal Medical Decision Making Medical Decision Making: Initial Plan: --Alcohol serum --CMP --Lipase --CBC w/ differential --Pepcid 20 mg IVP --Sodium Chloride 1,000 ml IV 200 mls/hr --Zofran Inj 4 mg IVP --reevaluation Scribe Attestation: Documented by Som Ibanez, acting as a scribe for Munir Nazario MD Provider Scribe Attestation: All medical record entries made by the Scribe were at my direction and personally dictated by me. I have reviewed the chart and agree that the record accurately reflects my personal performance of the history, physical exam, medical decision making, and the department course for this patient. I have also personally directed, reviewed, and agree with the discharge instructions and disposition. Disposition - Clinical Impression Clinical Impression: Cirrhosis of liver, Gastritis - Patient ED Disposition Is Patient to be Admitted: No Counseled Patient/Family Regarding: Studies Performed, Diagnosis, Need For Followup, Rx Given - Disposition Referrals: [facility] [Outside] Disposition: Routine/Home Disposition Time: 15:08 Condition: FAIR Prescriptions: Famotidine [Pepcid] 20 mg PO Q12 #20 tab Ondansetron [Zofran] 4 mg PO Q8H #10 tab Instructions: Cirrhosis (ED), Gastritis (ED) Forms: [employer] (Portuguese)
[2017-11-27 12:41] LABS: BASO % 0.8 % (0.0-2.0); EOS % 0.3 % (0.0-4.0); HEMOGLOBIN 14.3 g/dL (12.0-18.0); LYMPH # 0.6 K/uL (1.0-4.3); LYMPH % 19.1 % (20.0-40.0); MEAN CELL VOLUME 101.4 fl (80.0-94.0); MEAN CORPUSCULAR HEMOGLOBIN 34.8 pg (27.0-31.0); MEAN CORPUSCULAR HGB CONC 34.3 g/dL (33.0-37.0); MEAN PLATELET VOLUME 9.1 fl (7.2-11.7); MONO # 0.2 K/uL (0.0-0.8); MONO % 7.2 % (0.0-10.0); NEUT # 2.3 K/uL (1.8-7.0); NEUT % 72.6 % (50.0-75.0); NRBC % 0.3 % (0.0-0.0); RBC 4.1 Mil/uL (4.40-5.90); RED CELL DISTRIBUTION WIDTH 14.4 % (11.5-14.5); WHITE BLOOD COUNT 3.2 K/uL (4.8-10.8)
[2017-11-27 12:56] LABS: ALB/GLOB RATIO 0.9 (1.0-2.1); ALBUMIN 3.9 g/dL (3.5-5.0); ALT/SGPT 75 U/L (21-72); AST/SGOT 137 U/L (17-59); BLOOD UREA NITROGEN 6 mg/dl (9-20); GFR AFRICAN-AMERICAN > 60; GFR NON-AFRICAN AMERICAN > 60; LIPASE 61 U/L (23-300)
[2017-11-27] MEDS ORDERED: Iohexol 300 100 ML IJ ONE (13:47)
[2017-11-27] MEDS ORDERED: Sodium Chloride 0.9% 50 ML IV ONE (13:47)
--- NOTE | 2017-11-27 14:52 | CT ---
PROCEDURE: CT Abdomen and Pelvis with contrast HISTORY: Abd pain elevated bili COMPARISON: CT scan of the abdomen and pelvis dated 07/12/2016. TECHNIQUE: Contrast dose: 95 mL Omnipaque 300 Radiation dose: Total exam DLP = 861.5 mGy-cm. This CT exam was performed using one or more of the following dose reduction techniques: Automated exposure control, adjustment of the mA and/or kV according to patient size, and/or use of iterative reconstruction technique. FINDINGS: LOWER THORAX: Unremarkable. LIVER: Cirrhosis. Hepatic steatosis. No gross lesion or ductal dilatation. GALLBLADDER AND BILE DUCTS: Gallbladder sludge. PANCREAS: Unremarkable. No gross lesion or ductal dilatation. SPLEEN: Splenomegaly. ADRENALS: Unremarkable. No mass. KIDNEYS AND URETERS: Right upper/ midpole nonobstructive calculi. Multiple bilateral renal cysts, the largest on the right is in the midpole and measures 2.7 x 2.2 cm and the largest on the left is in the midpole and measures 2.2 x 2.0 cm. No hydronephrosis. No solid mass. VASCULATURE: Poor opacification of the intrahepatic portal venous system. Prominent hepatic arteries. Stably enlarged splenorenal shunt. No aortic aneurysm. BOWEL: Colonic diverticulosis. No obstruction. No gross mural thickening. APPENDIX: Prior appendectomy. PERITONEUM: Unremarkable. No free fluid. No free air. LYMPH NODES: Unremarkable. No enlarged lymph nodes. BLADDER: Unremarkable. REPRODUCTIVE: Unremarkable. BONES: No acute fracture. OTHER FINDINGS: None. IMPRESSION: No acute abdominal pelvic pathology. Hepatic cirrhosis with steatosis. Poor opacification of the intrahepatic portal venous system may be related to progressive occlusion with compensatory hepatic arterial hypertrophy. Stably prominent splenorenal shunt. Gallbladder sludge without wall thickening or pericholecystic fluid. Additional findings as above.
== END 2017-11-27 15:38 | disposition home or self-care (01) ==
LOC: H.ER 11:23
DX: K74.60 Unspecified cirrhosis of liver (principal); K29.70 Gastritis, unspecified, without bleeding; I48.91 Unspecified atrial fibrillation; I10 Essential (primary) hypertension
CPT/HCPCS: 74177; 80053; 80320; 83690; 85025; 96374; 96375; 99282; J2405; J7040; Q9967

== ENCOUNTER 2018-01-28 11:26 | Emergency (ER) | payer OTHER ==
[2018-01-28 11:28] VITALS: BMI 29.5
[2018-01-28 12:04] VITALS: RESP 16; O2SAT 97
--- NOTE | 2018-01-28 13:07 | ED PDOC ---
HPI: Chest Pain Time Seen by Provider: 01/28/18 11:43 Chief Complaint (Nursing): Rib Injury Chief Complaint (Provider): Left rib pain History Per: Patient History/Exam Limitations: no limitations Onset/Duration Of Symptoms: Days (x3 days) Current Symptoms Are (Timing): Still Present Context: Recent Trauma Quality: "Pain" Exacerbating Factors: Deep Breathing Additional Complaint(s): Som Rojo is a 42 year old male, with a past medical history of liver cirrhosis and appendectomy, who presents to the emergency department complaining of left rib pain onset for x3 days. Patient reports x3 days ago someone at work fell and accidentally elbowed him on the left rib and has had pain since. Patient states pain is worst with deep breaths and is associated with difficulty breathing secondary to pain. He did not take any pain medication. He denies any fever, chills, cough, syncope, chest pain, nausea, vomit, diarrhea, abdominal pain or other injuries. No further medical complaints. PMD: None provided. Past Medical History Reviewed: Historical Data, Nursing Documentation, Vital Signs Vital Signs: Last Vital Signs Temp 98.0 F 01/28/18 11:49 Pulse 97 H 01/28/18 13:43 Resp 16 01/28/18 11:49 BP 146/84 01/28/18 11:49 Pulse Ox 97 01/28/18 13:43 - Medical History PMH: Atrial Fibrillation, HTN Denies: HIV, Chronic Kidney Disease Other PMH: Liver cirrhosis - Surgical History Surgical History: Appendectomy - Family History Family History: States: Unknown Family Hx - Social History Current smoker - smoking cessation education provided: No Alcohol: > 2 Drinks/Day Drugs: Denies - Immunization History Hx Tetanus Toxoid Vaccination: No Hx Influenza Vaccination: No Hx Pneumococcal Vaccination: No - Home Medications Home Medications: Ambulatory Orders Medication Instructions Recorded Lactulose 07/09/17 Famotidine [Pepcid] 20 mg PO Q12 #20 tab 11/27/17 Ondansetron [Zofran] 4 mg PO Q8H #10 tab 11/27/17 traMADol [Ultram] 50 mg PO BID PRN #10 tab 01/28/18 - Allergies Allergies/Adverse Reactions: Allergies Allergy/AdvReac Type Severity Reaction Status Date / Time No Known Allergies Allergy Verified 07/09/17 15:57 Review of Systems ROS Statement: Except As Marked, All Systems Reviewed And Found Negative Constitutional: Negative for: Fever, Chills Cardiovascular: Negative for: Chest Pain Respiratory: Positive for: Shortness of Breath (secondary to pain). Negative for: Cough Gastrointestinal: Negative for: Nausea, Vomiting, Abdominal Pain, Diarrhea Musculoskeletal: Positive for: Other (left rib pain) Neurological: Negative for: Other (syncope) Physical Exam - Reviewed Nursing Documentation Reviewed: Yes Vital Signs Reviewed: Yes - Physical Exam Appears: Positive for: Well (comfortable), Non-toxic, No Acute Distress Head Exam: Positive for: ATRAUMATIC, NORMAL INSPECTION, NORMOCEPHALIC Skin: Positive for: Normal Color, Warm, Dry. Negative for: Rash, Jaundice Eye Exam: Positive for: EOMI, PERRL, Scleral icterus (chronic) Neck: Positive for: Painless ROM, Supple Cardiovascular/Chest: Positive for: Regular Rate, Rhythm. Negative for: Murmur Respiratory: Positive for: Normal Breath Sounds (clear to auscultation). Negative for: Respiratory Distress Gastrointestinal/Abdominal: Positive for: Normal Exam, Soft. Negative for: Tenderness Back: Positive for: Normal Inspection. Negative for: L CVA Tenderness, R CVA Tenderness, Vertebral Tenderness Extremity: Positive for: Normal ROM (all extremities). Negative for: Deformity , Swelling, Other (tremors) Neurologic/Psych: Positive for: Alert, Oriented. Negative for: Motor/Sensory Deficits - ECG ECG Rhythm: Positive for: Normal QRS, Normal ST Segment, Sinus Rhythm Rate: 97 O2 Sat by Pulse Oximetry: 97 (RA) Pulse Ox Interpretation: Normal - Radiology X-Ray: Viewed By Me, Read By Radiologist X-Ray Interpretation: No Acute Disease - Progress Re-evaluation Time: 13:36 Condition: Re-examined, Improved Medical Decision Making Medical Decision Making: Initial Impression: rib injury, rib pain. Differential includes but not limited to rib fracture, pulmonary contusion. Initial Plan: --EKG --Ribs and chest LT [RAD] --Ultram 50 mg PO --Reevaluation 13:18 Rib & Chest X-Ray FINDINGS: LEFT RIBS: No fracture or focal lesion visualized. LUNGS: Clear. PLEURA: No pneumothorax or pleural fluid. CARDIOVASCULAR: Normal sized heart. No pulmonary vascular congestion. OTHER FINDINGS: None. IMPRESSION: Unremarkable radiographs of the chest and left ribs. No left rib fracture. Scribe Attestation: Documented by Som Ibanez, acting as a scribe for Katarina Harris MD Provider Scribe Attestation: All medical record entries made by the Scribe were at my direction and personally dictated by me. I have reviewed the chart and agree that the record accurately reflects my personal performance of the history, physical exam, medical decision making, and the department course for this patient. I have also personally directed, reviewed, and agree with the discharge instructions and disposition. Disposition - Clinical Impression Clinical Impression: Contusion of rib on left side - Patient ED Disposition Is Patient to be Admitted: No Doctor Will See Patient In The: Office Counseled Patient/Family Regarding: Studies Performed, Diagnosis, Need For Followup - Disposition Referrals: [facility] [Outside] Disposition: Routine/Home Disposition Time: 13:54 Condition: GOOD Additional Instructions: Take your medications as instructed. Follow up with your PCP in 2-3 days. Prescriptions: traMADol [Ultram] 50 mg PO BID PRN #10 tab PRN Reason: Pain, Severe (8-10) Instructions: Bruised Rib (DC)
[2018-01-28 13:16] VITALS: PULSE 97
--- NOTE | 2018-01-28 13:19 | RAD ---
PROCEDURE: Radiographs of the Chest and Left Ribs. HISTORY: left rib pain injury COMPARISON: None available. TECHNIQUE: Frontal radiograph of the chest and multiple oblique radiographs of the left ribs were obtained. FINDINGS: LEFT RIBS: No fracture or focal lesion visualized. LUNGS: Clear. PLEURA: No pneumothorax or pleural fluid. CARDIOVASCULAR: Normal sized heart. No pulmonary vascular congestion. OTHER FINDINGS: None. IMPRESSION: Unremarkable radiographs of the chest and left ribs. No left rib fracture.
[2018-01-28 14:11] VITALS: BP 120/70; TEMP 98.3
--- NOTE | 2018-01-30 18:25 | CARD ---
APPROVED REPORT EKG Measurement Heart [id number] [id number] <Conclusion> Normal sinus rhythm Prolonged QT Abnormal ECG
== END 2018-01-28 14:11 | disposition home or self-care (01) ==
LOC: H.ER 11:26
DX: I10 Essential (primary) hypertension (principal)

== ENCOUNTER 2018-02-21 17:30 | Inpatient (IN) | payer OTHER, SELFPAY ==
[2018-02-21 17:30] VITALS: BMI 29.5
[2018-02-21] MEDS ORDERED: Tdap Vaccine 0.5 ml Vial (10-64 yrs) IM ONE ×2 (18:07→18:42)
--- NOTE | 2018-02-21 18:35 | ED PDOC ---
HPI: Psych/Substance Abuse Time Seen by Provider: 02/21/18 17:43 Chief Complaint (Nursing): Alcohol Ingestion History Per: Patient History/Exam Limitations: no limitations Onset/Duration Of Symptoms: Days (02/21/18) Modifying Factor(s): Alcohol Additional Complaint(s): 43 year old male with h/o cirrhosis, presents to the ED under police custody for medical and psychiatric clearance. Patient mentioned of suicidal ideation while being transported. Patient has a history of alcohol abuse but states he has been sober for over 3 years. Last night he had 2 shots of alcohol and admits to drinking. States he does not feel well right now, states that he feels sad and depressed. Of note, patient also has bruising and abrasion on left medial arm which he sustained during the arrest. Otherwise: (-) fever, (-) cough, (-) chest pain, (-) shortness of breath, (-) headache, (-) dizziness, (- ) vomiting, (-) nausea, and (-) abdominal pain, (-) hallucinations, (-) HI. Past Medical History Reviewed: Historical Data, Nursing Documentation, Vital Signs Vital Signs: Last Vital Signs Temp 97.3 F L 02/21/18 17:32 Pulse 96 H 02/21/18 17:32 Resp 16 02/21/18 17:32 BP 146/100 H 02/21/18 17:32 Pulse Ox 99 02/21/18 17:32 - Medical History PMH: Atrial Fibrillation, HTN Denies: HIV, Chronic Kidney Disease - Surgical History Surgical History: Appendectomy - Family History Family History: States: Unknown Family Hx - Social History Current smoker - smoking cessation education provided: No Alcohol: Social Drugs: Denies - Immunization History Hx Tetanus Toxoid Vaccination: No Hx Influenza Vaccination: No Hx Pneumococcal Vaccination: No - Home Medications Home Medications: Ambulatory Orders Medication Instructions Recorded Lactulose 07/09/17 Famotidine [Pepcid] 20 mg PO Q12 #20 tab 11/27/17 Ondansetron [Zofran] 4 mg PO Q8H #10 tab 11/27/17 traMADol [Ultram] 50 mg PO BID PRN #10 tab 01/28/18 - Allergies Allergies/Adverse Reactions: Allergies Allergy/AdvReac Type Severity Reaction Status Date / Time No Known Allergies Allergy Verified 02/21/18 17:32 Review of Systems ROS Statement: Except As Marked, All Systems Reviewed And Found Negative Constitutional: Negative for: Fever Cardiovascular: Negative for: Chest Pain Respiratory: Negative for: Cough, Shortness of Breath Gastrointestinal: Negative for: Nausea, Vomiting, Abdominal Pain Neurological: Positive for: Headache Physical Exam - Physical Exam Comments: GENERAL APPEARANCE: Patient is awake, alert, oriented x 3, in no acute distress. (+) Odor of alcohol. SKIN: Warm, dry; (-) cyanosis HEAD: (-) scalp swelling, (-) scalp tenderness. EYES: (-) conjunctival pallor, (-) scleral icterus, (-) nystagmus, (+) scleral icterus. ENMT: Mucous membranes moist. Airway patent: (-) stridor. NECK: (-) tenderness, (-) stiffness, (-) lymphadenopathy. CHEST AND RESPIRATORY: (-) rales, (-) rhonchi, (-) wheezes; breath sounds equal. ABDOMEN: Soft, (-) distention, (-) tenderness, (-) guarding, (-) organomegaly. EXTREMITIES: (+) large abrasion to left medial arm with hematoma, (+) FROM, (+) distal pulses and sensation intact. NEURO AND PSYCH: Mental status as above. Affect: Calm and cooperative. 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 Pupils equal and reactive; EOMI; (-) facial asymmetry; tongue and uvula midline. Strength symmetric. - Laboratory Results Result Diagrams: 02/21/18 18:35 02/21/18 21:39 - ECG O2 Sat by Pulse Oximetry: 99 (RA) Pulse Ox Interpretation: Normal Medical Decision Making Medical Decision Making: Time: 1805 Initial Plan: --EKG --Alcohol Serum --CMP --Drug Screen, Urine --Lipase --Crisis Evaluation --CBC w/ differential --Chest one view [RAD] --Adacel 0.5ml --Humerus Left [RAD] --Urinalysis --Reevaluation CXR : NAD, as read by KANDICE XR left humerus: no fracture, no dislocation, as read by KANDICE EKG: NSR at 92 bpm, (-) acute ST changes, as read by KANDICE. Labs reviewed : Labs reviewed, patient's platelet count is 66, chemistry shows a sodium of 155, glucose 115, AST 97, Alkaline phosphatase 218, total bilirubin 6.3, alcohol level 318, urine drug screen patient is positive for cocaine. KATHRYN Nazario notified of sodium of 155, he recommends a bolus of D5 half normal saline 500 mL, and maintenance fluids of D 5/2 normal saline at 150 mL per hour, afterwards repeat CMP after 2-3 hours. Patient seen and evaluated by crisis, after crisis evaluation they recommended reevaluation of the patient after 3 hours as his alcohol level is elevated at 318 at this time, crisis will reevaluate the patient at 10 PM. 22:00 On reevaluation, patient is laying in bed comfortably in no acute distress. He reports the headache, dizziness, chest pain, shortness of breath, nausea, abdominal pain, muscle ache or tremors. Lab results discussed with the patient in great detail. Patient notified of further plan of treatment in the emergency room, and is currently agreeable with this plan. Repeat CMP after D5 half-normal saline bolus and maintenance fluid shows that patient's sodium is now 152 and is improving. KATHRYN Nazario notified, states that the patient is otherwise medically cleared. Patient seen and evaluated by crisis, as per crisis patient will need further inpatient psychiatric treatment for depression as per Dr. French. However at this time the patient is under police custody for certain charges and hence patient cannot be left alone in the emergency room or the Hospital and must always be under the custody of police. As per crisis counselor, police are not allowed in the psychiatric floor if the patient is to be admitted. At this time crisis recommends possible [facility] screen. 23:00 Crisis at this time recommends definite [facility] screen as the patient will require inpatient psychiatric treatment however a enforcement safety officer cannot be at the bedside with the patient in the psychiatric floor. As per enforcement safety officer, patient still has certain charges against him and therefore he is unable to leave the patient unaccompanied. KATHRYN Monson notified of further plan for [facility] screen, agrees with plan for further hydration with D5 half normal saline and repeat CMP in the morning. 00:00 Case endorsed to KANDICE Goldsmith at midnight pending [facility] screen, repeat CMP, and final disposition. Scribe Attestation: Documented by John Chilel, acting as a scribe for Allyn Ferguson PA-C Provider Scribe Attestation: All medical record entries made by the Scribe were at my direction and personally dictated by me. I have reviewed the chart and agree that the record accurately reflects my personal performance of the history, physical exam, medical decision making, and the department course for this patient. I have also personally directed, reviewed, and agree with the discharge instructions and disposition. Disposition - Clinical Impression Clinical Impression: Alcohol intoxication, Hypernatremia, Depression - Patient ED Disposition Is Patient to be Admitted: Transfer of Care (Case endorsed to KANDICE Goldsmith at midnight pending [facility] screen, repeat CMP, and final disposition.) Counseled Patient/Family Regarding: Studies Performed, Diagnosis - Disposition Disposition Time: 00:00 Condition: STABLE - PA / TC OPERATOR / Resident Statement / has reviewed & agrees with the documentation as recorded.
[2018-02-21 18:44] LABS: BASO % 1.4 % (0.0-2.0); HEMOGLOBIN 12.8 g/dL (12.0-18.0); LYMPH # 1.5 K/uL (1.0-4.3); LYMPH % 43.2 % (20.0-40.0); MEAN CORPUSCULAR HEMOGLOBIN 34.8 pg (27.0-31.0); MEAN CORPUSCULAR HGB CONC 34.2 g/dL (33.0-37.0); MEAN PLATELET VOLUME 8.9 fl (7.2-11.7); MONO # 0.3 K/uL (0.0-0.8); MONO % 8.7 % (0.0-10.0); NEUT # 1.6 K/uL (1.8-7.0); NEUT % 45.7 % (50.0-75.0); NRBC % 0.3 % (0.0-0.0); RBC 3.68 Mil/uL (4.40-5.90); RED CELL DISTRIBUTION WIDTH 16.6 % (11.5-14.5); WHITE BLOOD COUNT 3.6 K/uL (4.8-10.8)
[2018-02-21 18:56] LABS: ALB/GLOB RATIO 0.7 (1.0-2.1); ALBUMIN 3.5 g/dL (3.5-5.0); ALT/SGPT 51 U/L (21-72); AST/SGOT 97 U/L (17-59); BLOOD UREA NITROGEN 8 mg/dl (9-20); CALCIUM 8.2 mg/dL (8.4-10.2); GFR AFRICAN-AMERICAN > 60; GFR NON-AFRICAN AMERICAN > 60; LIPASE 73 U/L (23-300)
[2018-02-21 19:15] LABS: BARBITURATES, UR NEGATIVE (NEGATIVE); BENZODIAZEPINES, UR NEGATIVE (NEGATIVE); OPIATES, UR NEGATIVE (NEGATIVE); PHENCYCLIDINE, UR NEGATIVE (NEGATIVE)
[2018-02-21 19:17] LABS: SQUAMOUS EPITHIAL < 1 /hpf (0-5); URINE BACTERIA RARE (<OCC); URINE BILIRUBIN NEGATIVE (NEGATIVE); URINE BLOOD MODERATE (NEGATIVE); URINE CLARITY SLIGHTY-CLOUDY (Clear); URINE COLOR AMBER (YELLOW); URINE GLUCOSE (UA) NEG (Normal); URINE HYALINE CAST 0-2 /hpf (0-2); URINE LEUKOCYTE ESTERASE NEG Leu/uL (Negative); URINE PROTEIN 100 mg/dL (NEGATIVE); URINE UROBILINOGEN 0.2-1.0 mg/dL (0.2-1.0)
[2018-02-21] MEDS ORDERED: Dextrose 5%/0.45% NS 500 ML IV SCH (19:45)
[2018-02-21 21:54] LABS: ALB/GLOB RATIO 0.8 (1.0-2.1); ALBUMIN 3.1 g/dL (3.5-5.0); ALT/SGPT 50 U/L (21-72); AST/SGOT 90 U/L (17-59); BLOOD UREA NITROGEN 8 mg/dl (9-20); CALCIUM 7.8 mg/dL (8.4-10.2); GFR AFRICAN-AMERICAN > 60; GFR NON-AFRICAN AMERICAN > 60
[2018-02-21] MEDS ORDERED: Dextrose 5%/0.45% NS 1,000 ML IV STA (23:44)
--- NOTE | 2018-02-21 23:52 | ED PDOC ---
- Laboratory Results Result Diagrams: 02/21/18 18:35 02/22/18 05:14 <Gustavo Chaudhary - Last Filed: 02/22/18 07:08> - Laboratory Results Result Diagrams: 02/21/18 18:35 02/22/18 05:14 - ECG O2 Sat by Pulse Oximetry: 99 (RA) Pulse Ox Interpretation: Normal <Ginger Goldsmith - Last Filed: 02/22/18 20:28> Medical Decision Making <Gustavo Chaudhary - Last Filed: 02/22/18 07:08> <Ginger Goldsmith - Last Filed: 02/22/18 20:28> Medical Decision Making: CXR as read by me is negative for acute pathology. (Gustavo Chaudhary) Case endorsed to clinical writer, Markos Goldsmith PA-C, at 0000 due to shift change. Pertinent details and labs reviewed. Patient pending [facility] screening and further disposition. Per Dr French, patient needs psychiatric admission for depression. Per Dr Nazario, patient is medically stable for further psychiatric evaluation. Repeat CMP at 0500. EKG: NSR at 92 bpm, (-) acute ST changes, as read by KANDICE. 0145 Patient resting comfortably in ED stretcher. Patient offers no additional complaints at this time. [facility] requesting repeat serum alcohol as level needs to be below 100 for them to evaluate patient in ED. Repeat ETOH level ordered. 0300 Repeat ETOH level: 161 0430 Patient sleeping in ED stretcher. Easily arousable. 0600 Repeat CMP reviewed and improved from prior. Sodium: 150. [facility] screener at bedside. 0700 Per [facility] screening, patient to be transferred to [facility] for psychiatric admission. Pending acceptance by [facility] MD 0[address] Transfer of care to Dr Hickman pending transfer to [facility]. (Ginger Goldsmith) Disposition <Gustavo Chaudhary - Last Filed: 02/22/18 07:08> - POA Present On Arrival: None - Disposition Disposition: Transfer of Care (Dr Hickman at 0800 pending [facility] transfer) Disposition Time: 08:00 <Ginger Goldsmith - Last Filed: 02/22/18 20:28> - Clinical Impression Clinical Impression: Alcohol intoxication, Hypernatremia, Depression - Disposition Condition: STABLE - Lab Results Lab Results: 02/21/18 02/21/18 02/21/18 21:39 18:45 18:45 WBC RBC Hgb Hct MCV MCH MCHC RDW Plt Count MPV Neut % (Auto) Lymph % (Auto) [place] % (Auto) Eos % (Auto) Baso % (Auto) Neut # (Auto) Lymph # (Auto) [place] # (Auto) Eos # (Auto) Baso # (Auto) Sodium 152 H Potassium 3.6 Chloride 105 Carbon Dioxide 30 Anion Gap 21 H BUN 8 L Creatinine 0.6 L Est GFR ( Amer) > 60 Est GFR (Non-Af Amer) > 60 Random Glucose 232 H Calcium 7.8 L Total Bilirubin 5.6 H AST 90 H ALT 50 Alkaline Phosphatase 180 H Total Protein 7.2 Albumin 3.1 L Globulin 4.1 H Albumin/Globulin Ratio 0.8 L Lipase Urine Color Lala Urine Clarity Slighty-cloudy Urine pH 6.0 Ur Specific [place] 1.016 Urine Protein 100 Urine Glucose (UA) Neg Urine Ketones Negative Urine Blood Moderate Urine Nitrate Negative Urine Bilirubin Negative Urine Urobilinogen 0.2-1.0 Ur Leukocyte Esterase Neg Urine RBC (Auto) 8 H Urine Microscopic WBC 12 H Ur Squamous Epith Cells < 1 Urine Bacteria Rare Hyaline Casts 0-2 Urine Opiates Screen Negative Urine Methadone Screen Negative Ur Barbiturates Screen Negative Ur Phencyclidine Scrn Negative Ur Amphetamines Screen Negative U Benzodiazepines Scrn Negative U Oth Cocaine Metabols Positive H U Cannabinoids Screen Negative Alcohol, Quantitative 02/21/18 02/21/18 18:35 18:35 WBC 3.6 L RBC 3.68 L Hgb 12.8 Hct 37.6 MCV 102.0 H MCH 34.8 H MCHC 34.2 RDW 16.6 H Plt Count 66 L MPV 8.9 Neut % (Auto) 45.7 L Lymph % (Auto) 43.2 H [place] % (Auto) 8.7 Eos % (Auto) 1.0 Baso % (Auto) 1.4 Neut # (Auto) 1.6 L Lymph # (Auto) 1.5 [place] # (Auto) 0.3 Eos # (Auto) 0.0 Baso # (Auto) 0.0 Sodium 155 H Potassium 3.8 Chloride 107 Carbon Dioxide 29 Anion Gap 23 H BUN 8 L Creatinine 0.6 L Est GFR ( Amer) > 60 Est GFR (Non-Af Amer) > 60 Random Glucose 115 H Calcium 8.2 L Total Bilirubin 6.3 H AST 97 H D ALT 51 Alkaline Phosphatase 218 H Total Protein 8.1 Albumin 3.5 Globulin 4.7 H Albumin/Globulin Ratio 0.7 L Lipase 73 Urine Color Urine Clarity Urine pH Ur Specific [place] Urine Protein Urine Glucose (UA) Urine Ketones Urine Blood Urine Nitrate Urine Bilirubin Urine Urobilinogen Ur Leukocyte Esterase Urine RBC (Auto) Urine Microscopic WBC Ur Squamous Epith Cells Urine Bacteria Hyaline Casts Urine Opiates Screen Urine Methadone Screen Ur Barbiturates Screen Ur Phencyclidine Scrn Ur Amphetamines Screen U Benzodiazepines Scrn U Oth Cocaine Metabols U Cannabinoids Screen Alcohol, Quantitative 318 H*
[2018-02-22 05:30] LABS: ALB/GLOB RATIO 0.7 (1.0-2.1); ALBUMIN 2.9 g/dL (3.5-5.0); ALT/SGPT 49 U/L (21-72); AST/SGOT 88 U/L (17-59); BLOOD UREA NITROGEN 7 mg/dl (9-20); GFR AFRICAN-AMERICAN > 60; GFR NON-AFRICAN AMERICAN > 60
[2018-02-22 07:47] VITALS: TEMP 98.4
--- NOTE | 2018-02-22 09:11 | ED PDOC ---
- Laboratory Results Result Diagrams: 02/21/18 18:35 02/22/18 05:14 - ECG O2 Sat by Pulse Oximetry: 99 (RA) - Progress ED Course And Treament: 700: Stable. Took over care from Dr. Vohra. HILARIO on [facility]. He has medically cleared pt. 911: Stable. [facility] accepted. Pending transfer. Disposition - Clinical Impression Clinical Impression: Alcohol intoxication, Hypernatremia, Depression - Disposition Condition: STABLE
[2018-02-22 09:19] VITALS: BP 135/87; PULSE 93; RESP 16
--- NOTE | 2018-02-22 09:24 | RAD ---
PROCEDURE: CHEST RADIOGRAPH, 1 VIEW HISTORY: psych eval COMPARISON: 05/05/2017. FINDINGS: LUNGS: The lungs are well inflated and clear. PLEURA: No pneumothorax or pleural fluid seen. CARDIOVASCULAR: Normal. OSSEOUS STRUCTURES: No significant abnormalities. VISUALIZED UPPER ABDOMEN: Normal. OTHER FINDINGS: None. IMPRESSION: No active pulmonary disease.
--- NOTE | 2018-02-22 09:55 | RAD ---
PROCEDURE: Radiographs of the left humerus. HISTORY: Pain COMPARISON: None. FINDINGS: BONES: There is no acute displaced fracture or bone destruction. Bone alignment and mineralization are normal. SOFT TISSUES: Normal. OTHER FINDINGS: None. IMPRESSION: No acute fracture or dislocation.
[2018-02-22 20:28] VITALS: O2SAT 99
--- NOTE | 2018-02-23 09:03 | CARD ---
APPROVED REPORT EKG Measurement Heart [id number] DC 166P [id number] <Conclusion> Normal sinus rhythm Prolonged QT Abnormal ECG artefact present
== END 2018-02-22 09:00 | disposition short-term general hospital (02) | DRG 750 ==
LOC: H.ER 17:30 → H.ERHOLD 22:35
PROVIDERS: ADMIT Psychiatry & Neurology Psychiatry; ATTEND Psychiatry & Neurology Psychiatry
PROC: 3E0234Z Introduction of Serum, Toxoid and Vaccine into Muscle, Percutaneous Approach (ICD-10-PCS; principal; 2018-02-21)
DX: F10.129 Alcohol abuse with intoxication, unspecified (principal); E87.0 Hyperosmolality and hypernatremia; K74.60 Unspecified cirrhosis of liver; F32.9 Major depressive disorder, single episode, unspecified; Z23 Encounter for immunization; R45.851 Suicidal ideations; Y90.8 Blood alcohol level of 240 mg/100 ml or more; I10 Essential (primary) hypertension; I48.91 Unspecified atrial fibrillation